=== PATIENT | female | born 1945 | race Caucasian/White ===

== ENCOUNTER → 2017-04-22 14:53 | Outpatient (CLI) | payer MEDICARE, OTHER, SELFPAY ==
--- NOTE | 2017-04-22 14:59 | XR_ITS ---
XR ribs LT min 3V w CXR1V HISTORY: Left-sided rib pain ORDERING PHYSICIAN: Jerel Mccormack MD PATIENT AGE: 72 years COMPARISON: 05/14/2016 FINDINGS: A frontal view of the chest shows no acute finding. Multiple views of the Left ribs were obtained. No fracture or dislocation. No lytic or blastic change. IMPRESSION: Negative RIBS. If pain persists, consider follow-up exam in 7-[address] with 3-D reformats.
--- NOTE | 2017-04-22 15:00 | XR_ITS ---
XR chest 2V HISTORY: ITS.REASON: CHEST WALL PAIN ORDERING PHYSICIAN: Jerel Mccormack MD PATIENT AGE: 72 years COMPARISON: 05/14/2016 FINDINGS: The cardiomediastinal silhouette and pulmonary vascularity are within normal limits. The lungs are clear without infiltrates, suspicious nodules, or pleural effusions. Mild degenerative change in the thoracic spine No acute bony abnormalities. IMPRESSION: No change with no acute finding
== END ==
PROVIDERS: PCP Internal Medicine Adolescent Medicine; Visit Provider Internal Medicine Adolescent Medicine
DX: R07.89 Other chest pain (principal)
CPT/HCPCS: 71046; 71101

== ENCOUNTER → 2017-07-03 11:09 | Outpatient (CLI) | payer MEDICARE, OTHER, SELFPAY ==
--- NOTE | 2017-07-03 11:19 | CT_ITS ---
CT head/brain wo con HISTORY: Headache, posttraumatic headache with nausea vomiting and dizziness ITS.REASON: TRAUMATIC INJURY, HEADACHE VOMITING ORDERING PHYSICIAN: Jerel Mccormack MD PATIENT AGE: 72 years COMPARISON: TECHNIQUE: Axial images obtained without contrast. Brain and bone windows reviewed. All CT scans at the facility use one or more dose reduction, viz: automated exposure control; ma/kV adjustment per patient size (including targeted exams where dose is matched to indication; i.e. head); or iterative reconstruction technique. FINDINGS: No midline shift, mass effect, intracranial hemorrhage, hydrocephalus, or extra-axial fluid collection is evident. The calvarium has an unremarkable appearance. No mastoid effusion. There is some minimal opacification of left mastoid sinus inferiorly No sinus air-fluid levels.. IMPRESSION: Negative CT head without contrast. No acute finding
== END ==
PROVIDERS: PCP Internal Medicine Adolescent Medicine; Visit Provider Internal Medicine Adolescent Medicine
DX: S09.90XA Unspecified injury of head, initial encounter (principal)
CPT/HCPCS: 70450

== ENCOUNTER → 2017-10-23 11:30 | Outpatient (CLI) | payer MEDICARE, OTHER, SELFPAY ==
--- NOTE | 2017-10-23 11:42 | XR_ITS ---
XR ankle LT min 3V HISTORY: Pain and swelling following injury ITS.REASON: CHEST PAIN ON BREATHING,LT ANKLE SPRAIN ORDERING PHYSICIAN: Mono Bernard MD PATIENT AGE: 72 years Comparison: None FINDINGS: There is an oblique nondisplaced fracture involving the distal shaft of the fibula exiting medially at the level of the ankle joint. The ankle mortise does not appear widened. There is soft tissue swelling laterally. IMPRESSION: Nondisplaced oblique distal fibular fracture with soft tissue swelling
--- NOTE | 2017-10-23 11:42 | XR_ITS ---
XR ribs BI min 4V w CXR1V HISTORY: ITS.REASON: CHEST PAIN ON BREATHING,LT ANKLE SPRAIN ORDERING PHYSICIAN: Mono Bernard MD PATIENT AGE: 72 years Comparison: 04/22/2017 FINDINGS: A frontal view of the chest shows no acute finding. Multiple views of the left and right ribs were obtained. No fracture or dislocation. No lytic or blastic change. IMPRESSION: Negative RIBS. If pain persists, consider follow-up exam in 7-[address] with 3-D reformats.
== END ==
PROVIDERS: PCP Internal Medicine Adolescent Medicine; Visit Provider Internal Medicine Adolescent Medicine
DX: R07.1 Chest pain on breathing (principal); S93.432A Sprain of tibiofibular ligament of left ankle, initial encounter
CPT/HCPCS: 71111; 73610

== ENCOUNTER 2017-10-23 12:32 | Outpatient (RCR) | payer MEDICARE, OTHER, SELFPAY | END 2017-10-23 13:35 | disposition home or self-care (01) | LOC: PT 12:32 | PROVIDERS: Visit Provider Internal Medicine Adolescent Medicine | DX: S82.302A Unspecified fracture of lower end of left tibia, initial encounter for closed fracture (principal) | CPT/HCPCS: 97760 ==

== ENCOUNTER → 2017-11-14 09:17 | Outpatient (CLI) | payer MEDICARE, OTHER, SELFPAY ==
--- NOTE | 2017-11-14 09:20 | XR_ITS ---
XR ankle LT min 3V Ordering Physician: Eduar Suazo MD Patient Age: 72 years: Female HISTORY: ITS.REASON: follow up Follow-up fracture distal fibula TECHNIQUE: 3 views left ankle COMPARISON : FINDINGS Stable Oblique nondisplaced fracture involving the distal shaft of the fibula is again noted. Fracture exits medially at the level of the ankle joint. The position of the fracture appears stable. Unchanged as prior study. Stable minimal less than 1 cortical width posterior lateral displacement of the distal fracture fragment again noted unchanged..Good apposition and alignment. Early healing and early callus formation clearly evident along at the lateral aspect of the fracture no evidence Ankle mortise intact with normal relationships. Small plantar calcaneal spur noted.. IMPRESSION: . Stable position of the distal fibular fracture. With Early healing now evident
== END ==
PROVIDERS: PCP Internal Medicine Adolescent Medicine; Visit Provider Orthopaedic Surgery
DX: S82.63XA Displaced fracture of lateral malleolus of unspecified fibula, initial encounter for closed fracture (principal)
CPT/HCPCS: 73610

== ENCOUNTER → 2017-12-05 09:03 | Outpatient (CLI) | payer MEDICARE, OTHER, SELFPAY ==
--- NOTE | 2017-12-05 09:06 | XR_ITS ---
XR ankle LT min 3V HISTORY: Follow-up fracture ITS.REASON: ankle fx fu/ out of cam walker ORDERING PHYSICIAN: Eduar Suazo MD PATIENT AGE: 72 years Comparison: 11/14/2018 FINDINGS: Healing oblique fracture once again noted involving the distal fibula with increasing callus formation with good alignment. Old fracture versus accessory center of ossification at the tip of the medial malleolus noted IMPRESSION: Healing nondisplaced distal fibular fracture.
== END ==
PROVIDERS: PCP Internal Medicine Adolescent Medicine; Visit Provider Orthopaedic Surgery
DX: S82.63XA Displaced fracture of lateral malleolus of unspecified fibula, initial encounter for closed fracture (principal)
CPT/HCPCS: 73610

== ENCOUNTER → 2018-01-07 10:14 | Outpatient (CLI) | payer MEDICARE, OTHER, SELFPAY ==
--- NOTE | 2018-01-07 10:19 | XR_ITS ---
XR knee RT 3V HISTORY: ITS.REASON: ACUTE RT KNEE PAIN ORDERING PHYSICIAN: Jerel Mccormack MD PATIENT AGE: 72 years COMPARISON: None FINDINGS: Mild to moderate osteoarthritic changes are present at the medial compartment with mild osteoarthritis of the patellofemoral joint there is increased density in the suprapatellar region consistent with knee joint effusion. Coarse calcification involves the medial thigh distally at 5 mm nonspecific. No fracture or dislocation. No lytic or blastic change. IMPRESSION: Osteoarthritis with knee joint effusion
== END ==
PROVIDERS: PCP Internal Medicine Adolescent Medicine; Visit Provider Internal Medicine Adolescent Medicine
DX: M25.561 Pain in right knee (principal)
CPT/HCPCS: 73562

== ENCOUNTER → 2018-10-16 09:27 | Outpatient (CLI) | payer MEDICARE, OTHER, SELFPAY ==
--- NOTE | 2018-10-16 09:35 | XR_ITS ---
XR knee RT 4V HISTORY: ITS.REASON: knee pain ORDERING PHYSICIAN: Myla Logan MD PATIENT AGE: 73 years COMPARISON: Right knee 01/07/2018 FINDINGS: There is marked joint space narrowing medially with almost girt-hd-lhao appearance and there has been interval progression of the joint space narrowing from the previous study. There is mild spurring of the tibial spines. There is narrowing of patellofemoral space and there is a small effusion within the suprapatellar bursa. IMPRESSION: Prominent degenerative change with slight interval progression from the previous study and with persistent and/or recurrent joint effusion suprapatellar bursa
== END ==
PROVIDERS: PCP Internal Medicine Adolescent Medicine; Visit Provider Orthopaedic Surgery
DX: M25.561 Pain in right knee (principal)
CPT/HCPCS: 73564

== ENCOUNTER → 2019-03-13 16:02 | Outpatient (CLI) | payer MEDICARE, OTHER, SELFPAY ==
--- NOTE | 2019-03-13 16:25 | XR_ITS ---
PROCEDURE: XR CHEST 2V CLINICAL HISTORY: cough and shortness of breath, nonsmoker COMPARISON: [id number] XR ribs LT min 3V w CXR1V from 04/22/2017 [id number] XR ribs BI min 4V w CXR1V from 10/23/2017 CXR2V XR chest 2V from 12/21/2017 FINDINGS: The cardiomediastinal silhouette and pulmonary vascularity are within normal limits. The lungs are clear without infiltrates, suspicious nodules, or pleural effusions. There is minimal discoid atelectasis at the right base. No acute bony abnormalities. There are mild degenerate changes lower thoracic spine IMPRESSION: Minimal right basilar atelectasis otherwise negative chest Dictated by: Dr. Danyel Oliveros MD 03/13/2019 18:[address] Danyel Oliveros MD in [place] 03/13/2019 18:29
== END ==
PROVIDERS: PCP Nurse Practitioner Family; Visit Provider Nurse Practitioner Family
DX: R05 Cough (principal)
CPT/HCPCS: 71046

== ENCOUNTER → 2019-08-25 11:21 | Outpatient (CLI) | payer MEDICARE, OTHER, SELFPAY ==
--- NOTE | 2019-08-25 11:30 | XR_ITS ---
PROCEDURE: XR THORACIC SPINE 3V CLINICAL INDICATION: THORACIC PAIN Fall with injury and pain COMPARISON: CXR2V XR chest 2V from 12/21/2017 FINDINGS: Normal alignment. No acute fracture or dislocation. Mild multilevel degenerative disc disease with ventral osteophytes. IMPRESSION: Degenerative changes, no acute finding Dictated by: Octaviano Dash MD 08/25/2019 14:09 Electronically signed by Octaviano Dash MD in [facility] 08/25/2019 14:09
--- NOTE | 2019-08-25 11:30 | XR_ITS ---
PROCEDURE: XR RIBS RT MIN 3V W CXR1V CLINICAL INDICATION: INTERCOSTAL PAIN Posttraumatic pain COMPARISON: [id number] XR ribs BI min 4V w CXR1V from 10/23/2017 CXR2V XR chest 2V from 12/21/2017 XR CHEST 2V from 03/13/2019 FINDINGS: A frontal view of the chest shows no acute finding. Pericardial fat pad is noted on the left. Two views of the right ribs show no obvious fracture, lytic lesion, or blastic lesion. IMPRESSION: No acute findings. Dictated by: Octaviano Dash MD 08/25/2019 14:20 Electronically signed by Octaviano Dash MD in [facility] 08/25/2019 14:20
--- NOTE | 2019-08-25 11:30 | XR_ITS ---
PROCEDURE: XR RIBS LT MIN 3V W CXR1V CLINICAL INDICATION: INTERCOSTAL PAIN Posttraumatic pain following injury COMPARISON: [id number] XR ribs BI min 4V w CXR1V from 10/23/2017 CXR2V XR chest 2V from 12/21/2017 XR CHEST 2V from 03/13/2019 FINDINGS: No fracture or dislocation. No lytic or blastic change. Consider chest CT with 3D reformats if pain persist. IMPRESSION: Negative left ribs Dictated by: Octaviano Dash MD 08/25/2019 14:11 Electronically signed by Octaviano Dash MD in [facility] 08/25/2019 14:11
== END ==
PROVIDERS: PCP Nurse Practitioner Family; Visit Provider Nurse Practitioner Family
DX: R07.82 Intercostal pain (principal); M54.6 Pain in thoracic spine
CPT/HCPCS: 71101; 72072

== ENCOUNTER → 2019-11-10 10:16 | Outpatient (CLI) | payer MEDICARE, OTHER, SELFPAY ==
--- NOTE | 2019-11-10 10:23 | CT_ITS ---
PROCEDURE: CT ABDOMEN PELVIS W CON CLINICAL INDICATION: UPPER ABD PAIN RUQ PAIN X 10 DAYS COMPARISON: CT ABDPELWO CT abdomen pelvis wo con from 12/21/2017 TECHNIQUE: IV Contrast: 75ML OPTIRAY 350 Oral Contrast None Axial images obtained with sagittal and coronal reformats. All CT scans at the facility use one or more dose reduction, viz: automated exposure control, ma/kV adjustment per patient size (including targeted exams where dose is matched to indication, i.e. head), or iterative reconstruction technique. FINDINGS: LOWER THORAX: There are atelectatic/fibrotic changes in the lung bases. ABDOMEN & PELVIS: Post cholecystectomy change. No focal liver lesion. The spleen, adrenal glands, and pancreas has an unremarkable appearance. There are small periportal lymph nodes which appear stable. No obvious renal or ureteral calculi or renal mass. There is a small exophytic left renal cyst posteriorly at 2 cm. No intestinal obstruction or free air. No evidence of appendicitis. There is a moderate amount of retained colonic feces in the descending and sigmoid colon. No evidence of diverticulitis. No pelvic mass or abnormal fluid collection. No acute bony findings. There are mild degenerative changes in the hips and spine IMPRESSION: There is a moderate amount of retained colonic feces in the descending and sigmoid colon. Otherwise negative CT abdomen pelvis. Dictated by: Octaviano Dash MD 11/11/2019 07:53 Octaviano Dash MD in [place] 11/11/2019 07:53
== END ==
PROVIDERS: PCP Nurse Practitioner Family; Visit Provider Nurse Practitioner Family
DX: R10.10 Upper abdominal pain, unspecified (principal)
CPT/HCPCS: 74177; Q9967

== ENCOUNTER 2020-03-19 22:52 | Emergency (ER) | payer MEDICARE, OTHER, MEDICAID, SELFPAY ==
[2020-03-19 23:34] VITALS: BP 180/60; PULSE 95; RESP 14; TEMP 36.6; O2SAT 97; BMI 31.2
--- NOTE | 2020-03-19 23:47 | PC.NURSE ---
pulses confirmed to lle by parker,emt-p
[2020-03-19 23:57] LABS: Microscopic, Urine URINE MICROSCOPIC (MICROSCOPIC)
--- NOTE | 2020-03-20 00:01 | XR_ITS ---
PROCEDURE: XR CHEST 2V CLINICAL HISTORY: right upper quad/right rib pain Right-sided pain COMPARISON: CR XR CHEST 2V from 03/13/2019 CR XR RIBS LT MIN 3V W CXR1V from 08/25/2019 CR XR RIBS RT MIN 3V W CXR1V from 08/25/2019 FINDINGS: The cardiomediastinal silhouette and pulmonary vascularity are within normal limits. Slight increased density is present in the right lung base and may be related to overlying breast tissue attenuation having a similar appearance on previous exam. No definite lobar consolidation collapse. Thoracic kyphosis unchanged. Degenerative changes thoracic spine. IMPRESSION: As above, no definite acute finding. Dictated by: Octaviano Dash MD 03/20/2020 04:56 Octaviano Dash MD in [place] 03/20/2020 04:56
--- NOTE | 2020-03-20 00:01 | CT_ITS ---
PROCEDURE: CT ABDOMEN PELVIS W CON CLINICAL INDICATION: ruq pain Right upper quadrant pain, right-sided pain COMPARISON: CT ABDPELW/O CT ABD PELVIS W/O CONTRAST from 11/23/[address] ABDOMEN PELVIS W CON from 11/10/2019 TECHNIQUE: IV Contrast: 75ML Isovue 370 Oral Contrast None Axial images obtained with sagittal and coronal reformats. All CT scans at the facility use one or more dose reduction, viz: automated exposure control, ma/kV adjustment per patient size (including targeted exams where dose is matched to indication, i.e. head), or iterative reconstruction technique. FINDINGS: LOWER THORAX: Chronic changes are present in the lung bases. ABDOMEN & PELVIS: Prior cholecystectomy. Mild thickening of the distal esophagus. The liver, spleen, and adrenal glands have an unremarkable appearance. There is pancreatic atrophy. There is mild thickening of the wall the stomach nonspecific and may only be due to nondistention versus gastritis. There is some nodularity of the tail the pancreas. This however may be related to relative pancreatic atrophy. Stability may be confirmed with follow-up. No renal or ureteral calculi. No hydronephrosis. Exophytic hypodensity projects off the posterior aspect of the left kidney measuring 1.6 cm with some increased density along the posterior aspect of this lesion. This is not significantly changed from 11/10/2019. An older study of 12/03/2014 demonstrated an exophytic cyst at this region. No intestinal obstruction or free air. No evidence of appendicitis or diverticulitis. There is a mild amount of retained colonic feces. There is a rounded calcific density in the mid pelvic region possibly due to contrast within a diverticulum or an area of fatty necrosis with calcification. Urinary bladder wall slightly thickened anteriorly. There are degenerative changes in the lumbar spine with 5 mm anterolisthesis of L4 on L5. There is a small umbilical hernia containing fat. IMPRESSION: 1. There is thickening of the distal esophagus and gastroesophageal junction. This is nonspecific and may only be due to nondistention. Neoplasm or esophagitis is also considered in the differential diagnosis. Barium swallow or upper endoscopy may provide further evaluation. Mild thickening also noted of the stomach which could be due to nondistention or gastritis. 2. Complex left renal cyst not significantly changed. 3. Mild thickening the urinary bladder which could be due to nondistention or cystitis Dictated by: Octaviano Dash MD 03/20/2020 06:50 Octaviano Dash MD in [place] 03/20/2020 06:50
[2020-03-20 00:06] LABS: Appearance,Urine CLEAR (Clear); Bilirubin,Urine Negative (Negative); Blood, Urine Negative (Negative); Color,Urine YELLOW (Yellow); Glucose,Urine (UA) Negative (Negative); Ketones,Urine Negative (Negative); Leukocyte Esterase,Urine Negative (Negative); Nitrate,Urine Negative (Negative); PH,Urine 5.5 (5.0-8.5); Protein,Urine Negative (Negative); Urobilinogen,Urine 0.2 EU/dl (0.2)
[2020-03-20 00:10] LABS: Basophils # 0.1 K/mm3 (0-0.2); Basophils % 0.8 % (0.1-2.0); Eosinophils # 0.5 K/mm3 (0.0-0.4); Eosinophils % 5.5 % (0.1-12.0); Hematocrit 44.3 % (37.0-47.0); Hemoglobin 14.6 g/dL (12.2-16.2); Lymphocytes # 3.8 K/mm3 (0.7-4.5); Lymphocytes % 39.9 % (10-50); Mean Corpuscular HGB Conc 32.9 g/dL (31.8-35.4); Mean Corpuscular Hemoglobin 30.1 pg (27.0-31.2); Mean Corpuscular Volume 91.3 fl (81-99); Mean Platelet Volume 7.5 fl (7.4-10.4); Monocytes # 0.4 K/mm3 (0.1-1.0); Monocytes % 4.5 % (1.7-9.3); Neutrophils # 4.7 K/mm3 (1.8-7.8); Neutrophils % 49.2 % (37.0-80.0); Platelet Count 433 K/mm3 (142-424); Red Blood Count 4.85 M/mm3 (4.20-5.40); Red Cell Distribution Width 13.3 % (11.5-17.5); White Blood Count 9.6 K/mm3 (4.8-10.8)
[2020-03-20 00:33] LABS: Chloride 102 mmol/L (98-107); Sodium 135 mmol/L (136-145)
[2020-03-20 00:35] LABS: Amylase 82 U/L (30-110); Blood Urea Nitrogen 19 mg/dl (7-17); Creatinine Clearance Estimated 40 mL/min (50-200); Estimated Glomerular Filt Rate 37 ml/min (>60); GFR (African American) 44 ML/MIN (>60)
[2020-03-20 00:36] LABS: Alanine Aminotransferase 24 U/L (12-78); Albumin Level 4.8 g/dl (3.5-5.0); Alkaline Phosphatase 112 U/L (38-126); Aspartate Amino Transferase 32 U/L (14-36); Bilirubin,Direct 0.1 mg/dl (0.0-0.4); Bilirubin,Indirect 0.4 mg/dL (0.0-0.9); Bilirubin,Total 0.5 mg/dl (0.2-1.3); Bilirubin,Unconjugated 0.3 mg/dL (0.0-1.1); Calcium 9.7 mg/dl (8.4-10.2); Carbon Dioxide 22 mmol/L (22.0-30.0); Glucose 153 mg/dl (74-100); Lipase 209 U/L (23-300); Total Protein,Serum 8.2 g/dl (6.3-8.2)
[2020-03-20 00:50] LABS: C-Reactive Protein 9.1 mg/L (0-4)
[2020-03-20 01:04] LABS: Coronavirus 19 IgG Antibody Negative (Negative); Coronavirus 19 IgM Antibody Negative (Negative); Erythrocyte Sedimentation Rate 19 mm/hr (0-30); Procalcitonin 0.082 ng/mL (0.0-2.0)
[2020-03-20 01:11] VITALS: BP 157/68; PULSE 63; RESP 16; O2SAT 100
--- NOTE | 2020-03-20 01:11 | PC.NURSE ---
pt back from CT
--- NOTE | 2020-03-20 01:18 | HMH.EDNVD ---
ED Disposition Clinical Impression: Renal insufficiency Abdominal pain Qualifiers: Abdominal location: right upper quadrant Qualified Code(s): R10.11 - Right upper quadrant pain Disposition: Home, Self-Care Condition on Discharge: Good Instructions: DI for Acute Abdominal Pain Additional Instructions: call pcp in am Prescriptions: levoFLOXacin [Levaquin 500mg tab] 500 mg PO DAILY #7 tab Transmission Status: Pending to [facility] Referrals: Aaliyah Holt [Primary Care Provider] - - Critical Care Critical Care Time: No Attestation: On 03/19/20, the high probability of a clinically significant, sudden or life threatening deterioration of the following system(s) required my full and direct attention, intervention and personal management. The time I documented below is in addition to time spent performing reported procedures but includes the following listed in this critical care notation. Medical Decision Making - Medical Records Medical records reviewed: Yes: I reviewed the patient's medical records. - Johnie Inquiry Pt receiving controlled substance: No Vital Signs: 03/19/20 23:34 03/20/20 01:11 Temperature 97.8 F Temperature Source Oral Pulse Rate [Right Brachial] 95 H 63 Respiratory Rate 14 16 Blood Pressure [Right Arm] 180/60 H 157/68 H Blood Pressure Mean [Right Arm] 100 97 Blood Pressure Source [Right Arm] Automatic Cuff Automatic Cuff Blood Pressure Position [Right Arm] Sitting Sitting 02 Sat by Pulse Oximetry 97 100 Oxygen Delivery Method Room Air Room Air - Lab Data Lab results reviewed: Yes: I reviewed the patient's lab results. Lab Results 03/19/20 23:30: Urine Color Yellow, Urine Appearance Clear, Urine pH 5.5, Ur Specific [place] 1.020, Urine Protein Negative, Urine Glucose (UA) Negative, Urine Ketones Negative, Urine Blood Negative, Urine Nitrate Negative, Urine Bilirubin Negative, Urine Urobilinogen 0.2, Ur Leukocyte Esterase Negative, Urine WBC 10-20, Ur Squamous Epith Cells 5-10 03/19/20 23:55: WBC 9.6, RBC 4.85, Hgb 14.6, Hct 44.3, MCV 91.3, MCH 30.1, MCHC 32.9, RDW 13.3, Plt Count 433 H, MPV 7.5, Neut % (Auto) 49.2, Lymph % (Auto) 39.9, [place] % (Auto) 4.5, Eos % (Auto) 5.5, Baso % (Auto) 0.8, Neut # (Auto) 4.7, Lymph # (Auto) 3.8, [place] # (Auto) 0.4, Eos # (Auto) 0.5 H, Baso # (Auto) 0.1 03/19/20 23:55: Sodium 135 L, Potassium 4.0, Chloride 102, Carbon Dioxide 22, Anion Gap 15.0, BUN 19 H, Creatinine 1.40 H, Estimated Creat Clear 40, Estimated GFR 37 L, Est GFR ( Amer) 44 L, Glucose 153 H, Calcium 9.7, Total Bilirubin 0.5, Direct Bilirubin 0.1, Conjugated Bilirubin 0.0, Indirect Bilirubin 0.4, Unconjugated Bilirubin 0.3, AST 32, ALT 24, Alkaline Phosphatase 112, Total Protein 8.2, Albumin 4.8, Amylase 82, Lipase 209 03/19/20 23:55: ESR 19 03/19/20 23:55: C-Reactive Protein 9.1 H, Procalcitonin 0.082 03/19/20 23:55: SARS-CoV-2 IgG Ab (Rapid) Negative, SARS-CoV-2 IgM Ab (Rapid) Negative Result diagrams: 03/19/20 23:55 03/19/20 23:55 Orders (Tests/Meds): ED MEDICATIONS Generic Name Dose Route Start Last Admin Trade Name Freq PRN Reason Stop Dose Admin Sodium Chloride 1,000 mls @ 999 mls/hr 03/19/20 23:45 03/20/20 00:05 Sod Chlor 0.9% 1000ml Bag IV 03/20/20 00:45 999 mls/hr .[id number] JUAN Administration Discontinued Medications Generic Name Dose Route Start Last Admin Trade Name Freq PRN Reason Stop Dose Admin Iopamidol 75 ml 03/20/20 01:10 03/20/20 01:10 Iopamidol-370 (76%);100ml Bottle IV 03/20/20 01:11 75 ml ONCE ONE Administration Ketorolac Tromethamine 30 mg 03/19/20 23:58 03/20/20 00:05 Ketorolac 30mg/Ml Vial IV 03/19/20 23:59 30 mg ONCE ONE Administration Sodium Chloride 10 ml 03/20/20 01:10 03/20/20 01:10 Sodium Chloride 0.9% 10ml Syr (Rad Only) IV 03/20/20 01:11 10 ml ONCE ONE Administration ORDERS Category Date Time Status CT abdomen pelvis w con Stat Cat Scan 03/20/20 00:01 Taken XR ches
[2020-03-20 02:47] VITALS: BP 119/73; PULSE 73; RESP 15; TEMP 36.8; O2SAT 98
== END 2020-03-20 02:52 | disposition home or self-care (01) ==
PROVIDERS: Emergency Provider Emergency Medicine; PCP Nurse Practitioner Family
DX: R10.11 Right upper quadrant pain (principal); E11.22 Type 2 diabetes mellitus with diabetic chronic kidney disease; E11.65 Type 2 diabetes mellitus with hyperglycemia; I10 Essential (primary) hypertension; E78.5 Hyperlipidemia, unspecified; F41.8 Other specified anxiety disorders; Z01.84 Encounter for antibody response examination; Z88.2 Allergy status to sulfonamides; Z88.5 Allergy status to narcotic agent
CPT/HCPCS: 71046; 74177; 80048; 80076; 81001; 82150; 83690; 84145; 85025; 85651; 86140; 86328; 87086; 87088; 87186; 96365; 99283; Q9967

== ENCOUNTER → 2020-06-20 12:02 | Outpatient (CLI) | payer MEDICARE, OTHER, MEDICAID, SELFPAY ==
--- NOTE | 2020-06-20 12:08 | XR_ITS ---
PROCEDURE: XR CERVICAL SPINE 3V CLINICAL INDICATION: CERVICALGIA COMPARISON: No exams were available for comparison FINDINGS: There is normal alignment. No fracture or dislocation is evident. There is degenerative disc disease at C5-C6. C6-C7 is not well delineated the due to the overlying Sir older. There does appear to be good alignment of the vertebral body at C6-C7. Facet hypertrophic changes are present at C3-C4 C5 on the left. Left-sided carotid calcifications are noted. Other findings:None. IMPRESSION: Degenerative changes as described above. Dictated by: Octaviano Dash MD 06/20/2020 12:52 Octaviano Dash MD in [place] 06/20/2020 12:52
== END ==
PROVIDERS: PCP Nurse Practitioner Family; Visit Provider Nurse Practitioner Family
DX: M54.2 Cervicalgia (principal)
CPT/HCPCS: 72040

== ENCOUNTER → 2020-08-10 11:03 | Outpatient (CLI) | payer MEDICARE, OTHER, MEDICAID, SELFPAY ==
--- NOTE | 2020-08-10 11:08 | XR_ITS ---
PROCEDURE: XR CHEST 2V CLINICAL HISTORY: MILD PERSISTENT ASTHMA W/ ACUTE EXACERBATION COMPARISON: No exams were available for comparison FINDINGS: The cardiomediastinal silhouette and pulmonary vascularity are within normal limits. The lungs are clear without infiltrates, suspicious nodules, or pleural effusions. There is evidence of old granulomatous disease There are mild degenerative changes in the thoracic spine. IMPRESSION: No acute findings. Dictated by: Octaviano Dash MD 08/10/2020 14:45 Octaviano Dash MD in [place] 08/10/2020 14:45
== END ==
PROVIDERS: PCP Nurse Practitioner Family; Visit Provider Nurse Practitioner Family
DX: J45.31 Mild persistent asthma with (acute) exacerbation (principal)
CPT/HCPCS: 71046

== ENCOUNTER 2020-10-01 19:11 | Emergency (ER) | payer MEDICARE, OTHER, MEDICAID, SELFPAY ==
[2020-10-01 19:14] VITALS: BP 130/71; PULSE 98; RESP 26; TEMP 36.8; O2SAT 98; BMI 30.8
--- NOTE | 2020-10-01 19:28 | XR_ITS ---
PROCEDURE INFORMATION: Exam: XR Chest Exam date and time: 10/01/2020 7:28 PM Age: 75 years old Clinical indication: Cough and shortness of breath; Patient HX: Sough, asthma, SOA, sinus drainage; Additional info: Shortness of breath, history of asthma TECHNIQUE: Imaging protocol: XR of the chest. Views: 2 views. COMPARISON: CR XR CHEST 2V 08/10/2020 11:10 AM FINDINGS: Lungs: Mild biapical scarring. No airspace consolidation. No overt pulmonary edema. Calcified granuloma at the right lung apex. Pleural spaces: No pleural effusion. No pneumothorax. Heart/Mediastinum: Normal heart size. Aortic atherosclerosis. Bones/joints: Osteopenia. Scattered degenerative changes. IMPRESSION: No acute abnormality, and no significant change since 08/10/2020.
--- NOTE | 2020-10-01 20:00 | HMH.EDUTC ---
[facility] [place] Clinical Impression: COPD exacerbation Disposition: Home, Self-Care Condition on Discharge: Good Instructions: DI for Chronic Obstructive Pulmonary Disease Additional Instructions: Drink plenty of fluids. Take tylenol for pain or fever. Take the medications as directed. Keep taking the antibiotic that you are on (amoxicillin/clavulanate). Start the oral steroids that I sent to your pharmacy tomorrow. Follow up with your regular doctor. GO TO THE ER FOR ANY WORSENING SYMPTOMS Prescriptions: predniSONE [Deltasone 10mg tablet] 10 mg PO DAILY 9 Days #21 tab Transmission Status: Received by [facility] Referrals: Aaliyah Holt [Primary Care Provider] - Time of Disposition: 20:14 Medical Decision Making - Medical Records Medical records reviewed: No: I reviewed the patient's medical records. - Johnie Inquiry Pt receiving controlled substance: No Vital Signs: 10/01/20 19:14 10/01/20 20:16 Temperature 98.3 F 98 F Temperature Source Oral Pulse Rate 99 H Pulse Rate [Left] 98 H Respiratory Rate 26 H 22 Blood Pressure 131/73 Blood Pressure [Right Arm] 130/71 Blood Pressure Mean [Right Arm] 90 Blood Pressure Source [Right Arm] Automatic Cuff Blood Pressure Position [Right Arm] Sitting 02 Sat by Pulse Oximetry 98 Oxygen Delivery Method Room Air Orders (Tests/Meds): ED MEDICATIONS Discontinued Medications Generic Name Dose Route Start Last Admin Trade Name Freq PRN Reason Stop Dose Admin Albuterol/Ipratropium 3 ml 10/01/20 20:00 10/01/20 20:07 Ipratropium/Albuterol 3 Ml Neb IH 10/01/20 20:01 3 ml ONCE ONE Administration Methylprednisolone Sodium Succinate 125 mg 10/01/20 20:00 10/01/20 20:07 Methylprednisolone Sod Succ 125mg Vial IM 10/01/20 20:01 125 mg ONCE ONE Administration - Radiology Data #1 Image(s): Chest Image Reviewed: Yes I reviewed the patient's radiology image, Yes I have reviewed radiologist's interpretation Preliminary Findings: No Fracture Seen [facility] [place] - General Stated complaint: SOB Time Seen by Provider: 10/01/20 20:07 Mode of Arrival: Ambulatory Source of Information: Patient Limitations: No Limitations Description of Symptoms (Recalled from Triage Doc. by RN): asthmatic pt was seen friday for a sinus infection. today she has been soa and unable to have relief using her inhalers. HEENT Symptoms (Recalled from RN notes): No Resp Symptoms (Recalled from RN notes): Yes (soa and labored breathing) Skin Symptoms (Recalled from RN notes): No MS Symptoms (Recalled from RN notes): No Functional Status (Recalled from RN notes): na - History of Present Illness Provider Complaint: She is here with complaints of having shortness of breath and chest congestion. She has a history of asthma. She was having sinus congestion and a cough 2 days ago, so she went to her pcp and she was started on oral augmentin. She states that her sinus congestion is doing better, but now she is having wheezing and chest tightness with breathing. She denies any chest pain. - Related Data Home Medications Medication Instructions Recorded Confirmed acetaminophen 325 mg capsule 325 mg PO Q6H PRN 10/24/17 12/25/18 albuterol sulfate 90 mcg/actuation 1 puff INHALATION Q6H PRN 10/24/17 12/25/18 aerosol inhaler fluticasone propionate 50 1 spray INTRANASAL DAILY 10/24/17 12/25/18 mcg/actuation nasal spray,suspension ibuprofen 400 mg tablet 400 mg PO QID PRN 10/24/17 12/25/18 lisinopril 5 mg tablet 5 mg PO DAILY 10/24/17 12/25/18 sertraline 50 mg tablet 50 mg PO DAILY 10/24/17 12/25/18 sitagliptin 100 mg-metformin ER 1 tab PO DAILY 10/24/17 12/25/18 1,000 mg tablet,extended [id number] sitagliptin 100 mg tablet 100 mg PO DAILY 10/16/18 12/25/18 Previous Rx's Medication Instructions Recorded levoFLOXacin [Levaquin 500mg 500 mg PO DAILY #7 tab 03/20/20 tab] predniSONE [Deltasone 10mg tablet] 10 mg
[2020-10-01 20:16] VITALS: BP 131/73; PULSE 99; RESP 22; TEMP 36.6
== END 2020-10-01 20:19 | disposition home or self-care (01) ==
PROVIDERS: Emergency Provider Nurse Practitioner Family; PCP Nurse Practitioner Family
DX: J44.1 Chronic obstructive pulmonary disease with (acute) exacerbation (principal); E11.9 Type 2 diabetes mellitus without complications; F41.8 Other specified anxiety disorders; I10 Essential (primary) hypertension; E78.5 Hyperlipidemia, unspecified; Z88.2 Allergy status to sulfonamides; Z79.899 Other long term (current) drug therapy
CPT/HCPCS: G0463; 71046; 96372; 99202

== ENCOUNTER → 2020-11-14 16:07 | Outpatient (POV) | payer MEDICARE, OTHER, MEDICAID, SELFPAY | PROVIDERS: Visit Provider Dermatology | DX: Z00.00 Encounter for general adult medical examination without abnormal findings (principal) ==

== ENCOUNTER → 2022-02-20 12:10 | Outpatient (CLI) | payer MEDICARE, OTHER, MEDICAID, SELFPAY ==
--- NOTE | 2022-02-20 12:24 | XR_ITS ---
FINAL REPORT CLINICAL HISTORY: RT FOOT PAIN..pain in between big toe and 3 rd toe FINDINGS: 3 views of the right foot were obtained. There is no acute fracture or dislocation. There are moderate degenerative changes at the 1st MTP joint. There are calcaneal spurs. The soft tissues are unremarkable. IMPRESSION: Moderate degenerative change at the 1st MTP joint. Reviewed, Interpreted and Dictated by Sam Guillen III, MD Transcribed by Zac Sosa Authenticated and [facility]
[2022-02-20 15:28] LABS: Uric Acid 5.3 mg/dl (2.5-6.2)
== END ==
PROVIDERS: PCP Nurse Practitioner Family; Visit Provider Nurse Practitioner Family
DX: M79.671 Pain in right foot (principal)
CPT/HCPCS: 36415; 73630; 84550

== ENCOUNTER → 2022-04-01 09:15 | Outpatient (CLI) | payer MEDICARE, OTHER, MEDICAID, SELFPAY ==
--- NOTE | 2022-04-01 09:21 | CT_ITS ---
FINAL REPORT TECHNIQUE: Thin section axial images were obtained through the abdomen after intravenous and oral contrast. Reconstruction images were obtained from the axial data. Exam was performed using dose reduction techniques. CLINICAL HISTORY: L UPPER QUAD PAIN COMPARISON: March 20, 2020 FINDINGS: There are subpleural bilateral lower lobe ground-glass opacities which are similar to the prior could be related to atelectasis.. The liver is homogeneous. The gallbladder is absent.. The spleen, adrenal glands, and pancreas are unremarkable. There is a stable exophytic 1.7 cm lesion arising from the left kidney which is not a simple cyst. This could be a hemorrhagic or proteinaceous cyst. The kidneys are otherwise normal. There is distal esophageal wall thickening which is in improved. There are fluid filled mildly thickened proximal small bowel loops with no evidence of small-bowel obstruction. There are enlarged portal lymph nodes. An index lymph node measures 2.1 cm in was 1.9 cm. There is no ascites. Abdominal GI tract is without acute abnormality. There is no abdominal lymphadenopathy or ascites. The pelvic solid organs are unremarkable. The pelvic portions of the GI tract, including the appendix, are without acute abnormality. The uterus is present. There is a large amount of retained stool. There is no pelvic lymphadenopathy or ascites. No acute osseous abnormalities identified. IMPRESSION: 1. Fluid filled mildly thickened proximal small bowel loops may represent enteritis 2. Constipation. 3. Stable mildly enlarged portal lymph nodes of uncertain etiology. 4. Stable left renal lesion, not a simple cyst, could be a proteinaceous or hemorrhagic cyst. Reviewed, Interpreted and Dictated by Gali Bee MD Transcribed by Kyra Mccollum Authenticated and . [facility]
[2022-04-01 09:48] LABS: Blood Urea Nitrogen 19 mg/dl (7-17); Estimated Glomerular Filt Rate 40 ml/min (>60); GFR (African American) 48 ML/MIN (>60)
== END ==
PROVIDERS: PCP Nurse Practitioner Family; Visit Provider Nurse Practitioner Family
DX: R10.12 Left upper quadrant pain (principal)
CPT/HCPCS: 36415; 74177; 82565; 84520; Q9967

== ENCOUNTER 2023-09-22 16:44 | Emergency (ER) | payer MEDICARE, OTHER, SELFPAY ==
[2023-09-22 17:00] VITALS: BP 157/76; PULSE 88; RESP 20; TEMP 36.8; O2SAT 97; BMI 33.0
--- NOTE | 2023-09-22 17:28 | EXP.UTC ---
Discharge Plan Disposition Patient Disposition: Home, Self-Care Condition: Good Prescriptions Prescriptions: New cephalexin 500 mg capsule 500 mg PO Q8H 5 Days Qty: 15 0RF mupirocin 2 % ointment 1 applic topical TID 10 Days Qty: 22 0RF Rx Instructions: apply to scabbed area as prescribed No Action lisinopril 5 mg tablet 5 mg PO DAILY sertraline [Zoloft] 50 mg tablet 50 mg PO DAILY buspirone 10 mg tablet 10 mg PO BID Patient Comments: TAKE ONE TABLET BY MOUTH TWICE DAILY gabapentin 100 mg capsule 100 mg PO TID Patient Comments: Take 1 capsule 3 times a day by oral route. ezetimibe 10 mg tablet 10 mg PO DAILY Patient Comments: TAKE ONE TABLET BY MOUTH EVERY DAY insulin glargine [Basaglar KwikPen U-100 Insulin] 100 unit/mL (3 mL) insulin pen 45 unit SQ HS Patient Comments: inject 45 units under the skin at bedtime Tradjenta 5 mg tablet 5 mg PO DAILY Patient Comments: TAKE ONE TABLET BY MOUTH EVERY DAY Referrals Follow up/Referrals: Aaliyah Holt [Primary Care Provider] - See instructions Activity Restrictions/Add. Instructions Additional Instructions/Restrictions: *Start antibiotic(s) immediately and be sure to take as ordered for the FULL length of time although you may be feeling better or start to see improvement in the next 24-48 hours *Monitor closely. Outlined redness so that you can monitor easier. Follow up immediately for new or worsening symptoms including but not limited to redness, swelling, streaking from site fever or chills. *Warm compress 15 minutes 3-4 times day *Never squeeze or pop these on your own. Seek immediate medical attention next time this occurs *Monitor Temp. Tylenol every 4 hours as needed and ibuprofen every 6 hours as needed (as long as your primary care doctor has told you that it is ok to take both. For fever, aches, pain. ER if no less that 101 despite Tylenol and ibuprofen ?Follow up with your family doctor/primary care physician in the next 48-72 hours if no improvement and immediately if any worsening of symptoms Clinical Impressions Clinical Impression: Cellulitis Instructions Patient Instructions: Cellulitis Discharge ED Provider: Latisha Chaves [facility] General Stated complaint: ? spider bite,red,swollen left arm Mode of Arrival: Ambulatory Source of Information: Patient Limitations: No Limitations Time Seen by Provider: 09/22/23 17:28 Description of Symptoms (Recalled from Triage Doc. by RN): PATIENT C/O POSSIBLE SPIDER BITE TO LEFT UPPER ARM YESTERDAY. AREA IS NOTED TO BE WARM, RED AND SWOLLEN AND PATIENT STATES IT IS ITCHY AND SORE. PATIENT ALSO STATES THAT SHE STARTED HAVING SOME NAUSEA TODAY HEENT Symptoms (Recalled from RN notes): No Resp Symptoms (Recalled from RN notes): No Skin Symptoms (Recalled from RN notes): Yes MS Symptoms (Recalled from RN notes): No Functional Status (Recalled from RN notes): WNL History of Present Illness Provider Complaint: Patient states that she was cleaning at home yesterday and laid her arm over the chair and something bite her on her left upper arm States that she didnt see anything not sure if she may have got spider bite or what but she noticed scabbed like area in the middle and the redness and is getting larger and warm to the touch so she came in to get it checked worried about infection Related Data Home Medications Medication Instructions Recorded Confirmed lisinopril 5 mg tablet 5 mg PO DAILY Hypertension 10/24/17 09/22/23 sertraline 50 mg tablet (Zoloft) 50 mg PO DAILY Depression 10/24/17 09/22/23 buspirone 10 mg tablet 10 mg PO BID 09/22/23 09/22/23 ezetimibe 10 mg tablet 10 mg PO DAILY 09/22/23 09/22/23 gabapentin 100 mg capsule 100 mg PO TID 09/22/23 09/22/23 insulin glargine 100 unit/mL (3 45 unit SQ HS 09/22/23 09/22/23 mL) subcutaneous pen (Basaglar KwikPen U-100 Insulin) linagliptin 5 mg tablet (Tradjenta) 5 mg PO DAILY 09/22/23 09/22/23 Previous Rx's Medication Instructions Recorded cephalexin 500 mg capsule 500 mg PO Q8H 5 days #15 caps 09/22/23 mupirocin 2 % topical ointment 1 applic topical TID 10 days #22 09/22/23 grams Allergies Allergy/AdvReac Type Severity Reaction Status Date / Time acetaminophen [From LORTAB] Allergy Mild Verified 10/01/20 19:13 hydrocodone [From LORTAB] Allergy Mild I-HIVES Verified 10/01/20 19:13 codeine [CODEINE] Allergy Unknown NA-NAUSEA/V Verified 10/01/20 19:13 OMITING gabapentin [GABAPENTIN] Allergy Unknown NA-HALLUCIN Verified 10/01/20 19:13 ATIONS Sulfa (Sulfonamide Allergy Unknown I-HIVES Verified 10/01/20 19:13 Antibiotics) [SULFA (SULFONAMIDE ANTIBIOTICS)] Worker's Comp Is this a Worker's Comp case?: No [facility] Disclaimer: The information contained in this section may have been updated after the patient was seen, as this information can be updated by other users. Medical History (Updated 09/22/23 @ 17:41 by Latisha Chaves APRN) Depression Anxiety Diabetes mellitus, type 2 Asthma Hyperlipidemia Hypertension Surgical History (Updated 09/22/23 @ 17:24 by Ingris Davenport RN) History of cholecystectomy Social History Smoking Status: Never smoker alcohol intake: never current occupational status: retired Travel in the last 8 weeks: None ROS Obtained: Yes All systems reviewed & no additional complaints except as documented and Yes Systems reviewed as appropriate & no additional complaints except as documented Constitutional Constitutional: Reports system reviewed and no additional complaints, except as documented, Reports as per HPI, Denies body ache, Denies chills, Denies fever(s) and Denies headache(s) ENT Ears, Nose, Mouth, and Throat: Reports system reviewed and no additional complaints, except as documented, Reports as per HPI and Denies headache(s) Cardiovascular Cardiovascular: Reports system reviewed and no additional complaints, except as documented and Reports as per HPI Respiratory Respiratory: Reports system reviewed and no additional complaints, except as documented and Reports as per HPI Gastrointestinal Gastrointestingal: Reports system reviewed and no additional complaints, except as documented and as per HPI Integumentary/Breasts Skin/Breast: Reports system reviewed and no additional complaints, except as documented, Reports as per HPI and Reports other (redness and swelling to area on left upper arm thinks she may have been bit) Neurologic Neurologic: Denies headache(s) Physical Exam General General appearance: alert and in no apparent distress ENT ENT exam: Present mucous membranes moist Respiratory Respiratory exam: Present normal lung sounds bilaterally; Absent respiratory distress or wheezes Cardiovascular Cardiovascular exam: Present regular rate, normal rhythm and normal heart sounds Neurological Exam Neurological exam: Present alert, oriented X3 and normal gait Skin Skin exam: Present other Expanded Skin Exam Body image: 1. red raised warm area noted with scabbed area in center appears like bite area marked for easy monitoring no streaks noted Medical Decision Making Johnie Inquiry Pt receiving controlled substance: No Johnie was queried for this patient: No Vital Signs: 09/22/23 17:00 Temperature 98.2 F Temperature Source Oral Pulse Rate [Right Brachial] 88 Respiratory Rate 20 Blood Pressure [Right Arm] 157/76 H Blood Pressure Mean [Right Arm] 103 Blood Pressure Source [Right Arm] Automatic Cuff Blood Pressure Position [Right Arm] Sitting 02 Sat by Pulse Oximetry 97 Oxygen Delivery Method Room Air Medical Decision Narrative: Medication discussed with pharmacy
[2023-09-22 17:40] VITALS: BP 157/76; PULSE 88; RESP 20; TEMP 36.8; O2SAT 97
== END 2023-09-22 17:45 | disposition home or self-care (01) ==
PROVIDERS: Emergency Provider Nurse Practitioner; PCP Nurse Practitioner Family
DX: L03.114 Cellulitis of left upper limb (principal); E11.9 Type 2 diabetes mellitus without complications; Z79.4 Long term (current) use of insulin; Z79.84 Long term (current) use of oral hypoglycemic drugs
CPT/HCPCS: 99212; 99214; G0463